=== PATIENT | male | born 1985 | race Caucasian/White ===

== ENCOUNTER 2021-10-21 16:03 | Observation (INO) ==
--- NOTE | 2021-10-21 16:26 | Emergency Department Note ---
History of Present Illness General Chief complaint: Laceration/Cut (Non-Suture) Stated complaint: R HAND LACERATION Time Seen by Provider: 10/21/21 16:24 History of Present Illness Maximum Pain Intensity: 9 This is a [id number] 36-year-old male on Dupixent for dermatitis accompanied by his who presents with pain and swelling in his right index finger and hand secondary to a dog bite that occurred yesterday. He was playing tug-of-war with his own dog yesterday who is up-to-date on immunizations and the dog bit down on his finger trying to get a split leather mosser higher up on the rope they were playing with. He did not think much of it and they drove to [place] from the [place] area for a softball tournament. When he woke up this morning he noticed the above symptoms and visited a local urgent care. They referred him to the emergency department for further evaluation and management. His pain is worse anytime he tries to bend the finger. He denies any red streaks traveling up his arm. He denies any fevers, chills, body aches, nausea, vomiting. Patient does endorse a tingling sensation in the tip of his finger although this is improving compared to yesterday. They are due to drive back to the [place] area tomorrow. He has been told that his immune system is lowered because of the Dupixent. Past Med/Surg History Medical History Dermatitis Surgical History No pertinent past surgical history Social History Smoking Status: Never smoker Second Hand Exposure: No; Do You Dip or Chew Tobacco: No; Tobacco Cessation Education Requested by Patient: No Hx Alcohol Use: Yes Alcohol type: beer Hx Substance Use: No Preferred Language: Sami Communication Ability: Effective Table Inspector Required: No Beliefs That Will Affect Care: None Current Living Situation: Spouse Other Information That Helps Us Care for You: No Feels Safe at Home: Yes Safety Concerns: Feels Safe At This Time Assistive Devices: None Review of Systems See HPI for pertinent positives & negatives. and A total of 10 systems reviewed and were otherwise negative Physical Exam Vital Signs Vital Signs - 24 hr 10/21/21 16:18 Temperature 98.2 F Temperature Source Temporal Artery Scan Pulse Rate 87 Respiratory Rate 20 Respiratory Effort / Characteristics Non-Labored Respiratory Depth Normal Blood Pressure 151/68 H Blood Pressure Mean 95 Pulse Oximetry 98 Oxygen Delivery Method Room Air Sepsis Recent Fever Within 48 Hours No Sepsis New/Unexplained Change in Mental Status No Sepsis Action Taken by Nursing No Action Required CONSTITUTIONAL: Well developed, well nourished, in no acute distress. HEAD: Normocephalic, atraumatic. NECK: Full active range of motion. No rigidity. RESPIRATORY: Breathing unlabored and symmetric. Lungs clear to auscultation bilaterally. No wheeze, rales, or rhonchi. CARDIOVASCULAR: Regular rate and rhythm. No murmurs, rubs, or gallops. 2+ pulse s intact bilaterally. MUSCULOSKELETAL: Right index finger: Healing but open 1.5 cm horizontal irregular laceration present on the volar aspect of the proximal phalanx. There is subcutaneous tissue visualized. There is localized tenderness and erythema in this area of the laceration. Erythema extends onto the palm proximal to the MCP joint. There is tenderness elicited with passive extension of the index finger that radiates into the palm, and mild tenderness about the laceration. No discharge. Patient with minimal active range of motion in this finger. No lymphatic streaking. SKIN: [place], warm, dry. Capillary refill less than 2 seconds in bilateral index fingers. NEUROLOGIC: Alert and oriented x 3. Minimal decreased sensation to light touch in distal phalanx of right index finger. PSYCHIATRIC: Appropriate. Normal affect. Course Consultations Consultation #1: Spoke with Dr. Aguilar (hospitalist, [facility]) who agrees to admit the patient under medicine, and will consult with orthopedics. He is requesting I also speak with orthopedics for their input. Consultation #2: Spoke with Dr. Vale (orthopedics) who states they will monitor and follow his response to antibiotics, will not take the patient to the OR this evening. Regarding the open wound on the hand, he states this will be left open to heal by secondary intention due to infection and age of wound. Administered Medications Doxycycline Hyclate (Doxycycline Hyclate 100 Mg Cap) 100 mg PO BID [facility]; Protocol Stop: 10/28/21 20:59 Last Admin: 10/22/21 07:46 Dose: 100 mg Documented by: [id number] Admin: 10/21/21 21:39 Dose: 100 mg Documented by: [id number] Heparin Sodium (Porcine) (Heparin Sod 5,000 Unit/0.5 Ml Vial) 5,000 units SQ Q12 LYUDMILA Stop: 11/20/21 20:59 Last Admin: 10/22/21 07:47 Dose: 5,000 units Documented by: [id number] Admin: 10/21/21 21:39 Dose: 5,000 units Documented by: [id number] Ampicillin Sodium/Sulbactam Sodium 3,000 mg/ Sodium Chloride 108 mls @ 200 mls/hr IV Q6H LYUDMILA; Protocol Stop: 10/29/21 00:00 Last Infusion: 10/22/21 07:08 Dose: 0 mls/hr Documented by: [id number] Admin: 10/22/21 06:30 Dose: 200 mls/hr Documented by: [id number] Infusion: 10/22/21 01:20 Dose: 0 mls/hr Documented by: [id number] Admin: 10/22/21 00:44 Dose: 200 mls/hr Documented by: [id number] Oxycodone/Acetaminophen (Oxycodone/Acetaminophen 5mg/325mg Tab) 1 tab PO Q4H PRN PRN Reason: Severe Pain Stop: 11/04/21 18:23 Last Admin: 10/22/21 03:18 Dose: 1 tab Documented by: [id number] Admin: 10/21/21 21:52 Dose: 1 tab Documented by: [id number] Discontinued Medications Diphtheria/Pertussis/Tetanus Vacc (Diphtheria/Tetanus/Pertussis 0.5 Ml Syr/Vial) 0.5 ml IM .ONCE ONE Stop: 10/21/21 19:12 Last Admin: 10/21/21 19:33 Dose: 0.5 ml Documented by: [id number] Ampicillin Sodium/Sulbactam Sodium 3,000 mg/ Sodium Chloride 108 mls @ 200 mls/hr IV NOW STA; Protocol Stop: 10/21/21 17:15 Last Infusion: 10/21/21 17:45 Dose: 0 mls/hr Documented by: [id number] Admin: 10/21/21 17:16 Dose: 200 mls/hr Documented by: [id number] Morphine Sulfate (Morphine Sulfate 4 Mg/Ml 1 Ml Carp\Vial) 4 mg IV NOW STA Stop: 10/21/21 18:20 Last Admin: 10/21/21 18:32 Dose: 4 mg Documented by: [id number] Medical Decision Making Differential Diagnosis Fracture, laceration, cellulitis, flexor tenosynovitis, tendon injury, nerve, vascular injury, subluxation, dislocation, foreign body, among other pathology. Medical Records Attestation: I reviewed the patient's medical records. Laboratory Data Result diagrams: 10/22/21 05:45 10/22/21 05:45 Lab Results 10/21/21 10/21/21 10/21/21 Range/Units 16:46 16:46 16:46 WBC 8.16 (4.8-10.8) K/ul RBC 4.00 L (4.63-6.08) M/uL Hgb 11.7 L (14.0-18.0) g/dl Hct 34.0 L (40.1-51.0) % MCV 85.0 (80.0-100.0) fL MCH 29.3 (25.0-34.0) pg MCHC 34.4 (32.0-36.0) g/dL RDW Std Deviation 39.8 (36.4-46.3) fL RDW Coeff of Karan 13.0 (11.5-14.5) % Plt Count 158 (130-400) K/uL MPV 9.2 L (9.4-12.4) fL Immature Gran % (Auto) 0.4 % Neut % (Auto) 69.4 % Lymph % (Auto) 22.2 % [place] % (Auto) 7.0 % Eos % (Auto) 0.9 % Baso % (Auto) 0.1 % Neut # (Auto) 5.67 (1.4-6.5) K/uL Lymph # (Auto) 1.81 (1.2-3.4) K/uL [place] # (Auto) 0.57 (0.24-0.82) K/uL Eos # (Auto) 0.07 (0-0.50) K/uL Baso # (Auto) 0.01 (0-0.2) K/uL Immature Gran # (Auto) 0.03 H (0.00-0.02) K/uL ESR 17 H (0-15) mm/hr Sodium 139 (136-145) mmol/L Potassium 3.5 (3.5-5.1) mmol/L Chloride 105 (98-107) mmol/L Carbon Dioxide 27 (21-32) mmol/L Anion Gap 7 (3-11) BUN 14 (6-23) mg/dl Creatinine 1.06 (0.6-1.4) mg/dl Est Cr Clr Drug Dosing 126.8 ml/min Est GFR ( Amer) 105.6 ml/min Est GFR (Non-Af Amer) 91.1 ml/min BUN/Creatinine Ratio 13.2 (10-20) Glucose 98 (70-99(Fasting)) mg/dl Calcium 9.0 (8.5-10.1) mg/dl C-Reactive Protein 4.80 H (0-0.5) mg/dl SARS-CoV-2, RNA, NAAT (NEGATIVE) 10/21/21 Range/Units 17:20 WBC (4.8-10.8) K/ul RBC (4.63-6.08) M/uL Hgb (14.0-18.0) g/dl Hct (40.1-51.0) % MCV (80.0-100.0) fL MCH (25.0-34.0) pg MCHC (32.0-36.0) g/dL RDW Std Deviation (36.4-46.3) fL RDW Coeff of Karan (11.5-14.5) % Plt Count (130-400) K/uL MPV (9.4-12.4) fL Immature Gran % (Auto) % Neut % (Auto) % Lymph % (Auto) % [place] % (Auto) % Eos % (Auto) % Baso % (Auto) % Neut # (Auto) (1.4-6.5) K/uL Lymph # (Auto) (1.2-3.4) K/uL [place] # (Auto) (0.24-0.82) K/uL Eos # (Auto) (0-0.50) K/uL Baso # (Auto) (0-0.2) K/uL Immature Gran # (Auto) (0.00-0.02) K/uL ESR (0-15) mm/hr Sodium (136-145) mmol/L Potassium (3.5-5.1) mmol/L Chloride (98-107) mmol/L Carbon Dioxide (21-32) mmol/L Anion Gap (3-11) BUN (6-23) mg/dl Creatinine (0.6-1.4) mg/dl Est Cr Clr Drug Dosing ml/min Est GFR ( Amer) ml/min Est GFR (Non-Af Amer) ml/min BUN/Creatinine Ratio (10-20) Glucose (70-99(Fasting)) mg/dl Calcium (8.5-10.1) mg/dl C-Reactive Protein (0-0.5) mg/dl SARS-CoV-2, RNA, NAAT NEGATIVE (NEGATIVE) Imaging Data Attestation: I personally reviewed and interpreted this imaging study as follows: My Impression: I agree with the radiologist's interpretation Radiologist's Impression: Hand X-Ray 10/21/21 16:50 XR hand RT min 3V routine CLINICAL HISTORY: dog bite 2nd prox. phalanx, infected. COMPARISON STUDY: No previous studies for comparison. TECHNIQUE: 3 right hand views FINDINGS: Bones: There is no evidence for an acute fracture or dislocation. There is no lytic or blastic lesion. Joints: The joint spaces are maintained. The bones are in anatomic alignment. Soft tissues: There is diffuse swelling of the index finger. There is no air seen within the soft tissues. There is no radiopaque foreign body. IMPRESSION: 1. No acute osseous pathology. 2. Soft tissue swelling of the index finger. ACT 112: Negative or not required by law. Electronically signed by: Ruslan Ocasio M.D. 10/21/2021 5:06 PM MDM Narrative This is a 36-year-old male on Dupixent who presents with a history and examination consistent with a secondary infection from a dog bite that occurred about 24 hours ago. He has a swollen and tender healing but persistent laceration present on the volar aspect of the proximal phalanx of the left index finger. This wound is relatively deep into the subcutaneous tissue. If this had been evaluated yesterday, this would have been a candidate for loose closure giv en the depth of the wound, however now it is too late and I am concerned about progressing the infection even further should we attempt primary closure. Patient does have a fair amount of tenderness elicited when passively extending the finger which does cause me some concern between cellulitis versus flexor tenosynovitis. Case was discussed with and patient seen by Dr. Ibarra who agrees given the constellation of him being immunocompromised, depth and age of wound, and exam findings being consistent with possible early flexor tenosynovitis, admission was recommended. Tdap updated by hospitalist after speaking with them Patient was given morphine for pain control. CRP, ESR mildly elevated No leukocytosis. Normal renal function. Mild anemia with a hemoglobin of 11.7. X-ray is negative for fracture, gas, or foreign body. Patient received a dose of Unasyn in the emergency department. He remained hemodynamically stable. I spoke with Dr. Vale (orthopedics) who states they would follow the wound, but patient will not be taken to the OR tonight for washout in hopes of clinical improvement with antibiotics. Spoke with Dr. Aguilar (hospitalist) who agrees to admit the patient for further management. Impression & Plan Infected dog bite of right index finger, Cellulitis of hand, right Discharge Plan Visit Data Chief Complaint: Laceration/Cut (Non-Suture) Stated Complaint: R HAND LACERATION ED Provider: Milad Ibarra ED Midlevel Provider: Jakob Stanton Discharge Problem: Infected dog bite of right index finger, Cellulitis of hand, right Patient Disposition: Admitted As Inpatient Condition: Good Discharge Instructions Interventions: ED Discharge Assessment Last Done: 10/21/21 20:00 Discharge Problem: Infected dog bite of right index finger Qualifiers: Encounter type: initial encounter Qualified Code(s): S61.250A - Open bite of right index finger without damage to nail, initial encounter
[2021-10-21] MEDS ORDERED: AMPICILLIN/SULBACTAM SOD 3,000 MG in 0.9 % SODIUM CHLORIDE 100 ML IV STA (16:43)
[2021-10-21 17:01] LABS: Basophils # (auto) 0.01 K/uL (0-0.2); Basophils % (auto) 0.1 %; Eosinophils # (auto) 0.07 K/uL (0-0.50); Eosinophils % (auto) 0.9 %; Hemoglobin 11.7 g/dl (14.0-18.0); Immature Granulocytes # (auto) 0.03 K/uL (0.00-0.02); Immature Granulocytes % (auto) 0.4 %; Lymphocytes # (auto) 1.81 K/uL (1.2-3.4); Lymphocytes % (auto) 22.2 %; Mean Corpuscular Hemoglobin 29.3 pg (25.0-34.0); Mean Corpuscular Hgb Conc 34.4 g/dL (32.0-36.0); Mean Platelet Volume 9.2 fL (9.4-12.4); Monocytes # (auto) 0.57 K/uL (0.24-0.82); Neutrophils # (auto) 5.67 K/uL (1.4-6.5); Neutrophils % (auto) 69.4 %; Platelet Count 158 K/uL (130-400); RDW Standard Deviation 39.8 fL (36.4-46.3); White Blood Count 8.16 K/ul (4.8-10.8)
--- NOTE | 2021-10-21 17:07 | XRay Report ---
XR hand RT min 3V routine CLINICAL HISTORY: dog bite 2nd prox. phalanx, infected. COMPARISON STUDY: No previous studies for comparison. TECHNIQUE: 3 right hand views FINDINGS: Bones: There is no evidence for an acute fracture or dislocation. There is no lytic or blastic lesion . Joints: The joint spaces are maintained. The bones are in anatomic alignment. Soft tissues: There is diffuse swelling of the index finger. There is no air seen within the soft tis sues. There is no radiopaque foreign body. IMPRESSION: 1. No acute osseous pathology. 2. Soft tissue swelling of the index finger. ACT 112: Negative or not required by law. Electronically signed by: Ruslan Ocasio M.D. 10/21/2021 5:06 PM
[2021-10-21 17:21] LABS: BUN Creatinine Ratio 13.2 (10-20); C Reactive Protein 4.8 mg/dl (0-0.5); Creatinine Clr Calc Pharmacy 126.8 ml/min; Est GFR (African American) 105.6 ml/min; Est GFR (Non-African American) 91.1 ml/min; Potassium 3.5 mmol/L (3.5-5.1)
[2021-10-21] MEDS ORDERED: MoRPHine SULFATE 4 MG/ML 1 ML CARP\\VIAL IV STA (18:19)
[2021-10-21] MEDS ORDERED: ALUMINUM/MAGNESIUM SUSP 30 ML UDC PO PRN (18:25)
--- NOTE | 2021-10-21 18:39 | History & Physical Report ---
Date of Service October 21, 2021 Assessment & Plan (1) Infected dog bite of right index finger: (2) Cellulitis of hand, right: Plan: #. Infected right index finger laceration #. Purulent cellulitis #. Dog bite #. Immunocompromised patient: Patient on Dupixent for atopic dermatitis Patient incurred dog bite 10/20, came in with complaint of progressive pain/redness/swelling. Patient denies any fever or chills. Pain control, patient received Unasyn in the ED, continue with the same MRSA screen sent, doxycycline until MRSA screen negative. Tetanus vaccine. Ortho aware per ED, will eval tomorrow, n.p.o. midnight until seen by Ortho in the morning. Wound care nurse. #. No other home meds #. DVT prophylaxis: Heparin #. Full code History of Present Illness Chief Complaint: dog bite Primary Care Provider: NO PCP 36-year-old gentleman with PMH of atopic dermatitis on Dupixent and no other significant PMH presented to our ED with worsening pain and swelling of his right hand after he incurred dog bite on his right index finger yesterday. Per patient, yesterday when he was playing with the dog he got bit, it was not bothering him much yesterday, but the pain/redness and swelling progressively worsened and hence he presented to the ED. Per patient, his dog is fully vaccinated. Patient denies fever/chills/headache/chest pain/palpitation/sore throat/cough/belly pain/acute changes in bowel or bladder habit. Pt remembers getting tetanus vaccine only as a kid. Patient states he quit smoking 4 years ago [he smoked 1 packs a day for around 10 years], states drinking alcohol 1-2 times a month, denies use of any recreational drugs or marijuana. Full code Patient on Dupixent, no other home medication. Past Med/Surg History Medical History (Updated 10/21/21 @ 18:38 by LEXI Bhatt) Dermatitis Surgical History (Updated 10/21/21 @ 18:38 by LEXI Bhatt) No pertinent past surgical history Social History Smoking Status: Never smoker Feels Safe at Home: Yes Review of Systems Review of Systems: Negative otherwise mentioned in HPI. Physical Exam Physical Exam: GENERAL: Alert and oriented x3. NAD, on RA. HEENT: No pallor, no icterus. Pupils equal, round and reactive to light. Oral mucosa moist. NECK: No JVD, no neck masses. HEART: S1 and S2 heard. Regular rate and rhythm. No murmur, no gallop. RESPIRATORY SYSTEM: Normal AP diameter. No accessory muscle use. No wheezing, no crackles. ABDOMEN: Soft, bowel sounds present, nontender, no distention. CENTRAL NERVOUS SYSTEM: No facial droop. Speech is clear. Obeys simple commands. Moves extremities. EXTREMITIES: No edema, no erythema seen. b/l forearm w/ atopic dermatitis rash. Rt index finger w/ approx 2.5 cm laceration w/ pus point, tender, swollen, erythema at base of index finger noted. Results & Data Results & Data ([facility]) Vital Signs (Past 12 Hours) Vital Signs Temp Pulse Resp BP Pulse Ox 10/21/21 16:18 36.8 C 87 20 151/68 H 98 Code Status & VTE Plan VTE Prophylaxis Plan VTE Prophylaxis will be ordered: Yes (1) Infected dog bite of right index finger Encounter type: initial encounter Qualified Code(s): S61.250A - Open bite of right index finger without damage to nail, initial encounter; L08.9 - Local infection of the skin and subcutaneous tissue, unspecified; W54.0XXA - Bitten by dog, initial encounter
[2021-10-21] MEDS ORDERED: DIPHTHERIA/TETANUS/PERTUSSIS 0.5 ML SYR/VIAL IM ONE (19:11)
[2021-10-21] MEDS: DOXYCYCLINE HYCLATE 100 MG CAP PO SCH (21:39)
[2021-10-21] MEDS: HEPARIN SOD 5,000 UNIT/0.5 ML VIAL SQ SCH (21:39)
[2021-10-21] MEDS: oxyCODONE/ACETAMINOPHEN 5mg/325mg TAB PO PRN (21:52)
--- NOTE | 2021-10-21 22:47 | Orthopedic Consultation ---
Date of Consultation October 21, 2021 Assessment & Plan (1) Infected dog bite of right index finger: Right index finger pain and swelling secondarily to dog bite. There is also a laceration. This occurred October 20, 2021. Pain and swelling likely due to to the crush injury and laceration. Unlikely flexor tenosynovitis. Recommend continued: 1) antibiotics. 2) warm soaks twice daily until the wound is scarred over 3) covering the wound with Xeroform and dry sterile dressing after completing soaks. Continue n.p.o., will reexamine if requires any surgery. Continue care per primary service Present on Admission?: Yes History of Present Illness Reason for Consultation: Right Index finger laceration, infection, dog bite Requesting Physician: Tiny Vale MD Attending Physician: Asaf Aguilar MD History of Present Illness Adalberto is a pleasant 36-year-old male, [id number], with past medical history of atopic dermatitis on Dupixent, who was bit by a dog in the right index finger October 20, 2021. He had increased pain and swelling and came to the emergency department the next day. He was evaluated and admitted to the medical service and started on IV was consulted for possible surgical intervention. He is from [place]. Patient History Medical History Dermatitis Surgical History No pertinent past surgical history Social History Smoking Status: Never smoker Second Hand Exposure: No; Do You Dip or Chew Tobacco: No; Tobacco Cessation Education Requested by Patient: No Hx Alcohol Use: Yes Alcohol type: beer Hx Substance Use: No Preferred Language: Stateless Communication Ability: Effective Digital Community Manager Required: No Beliefs That Will Affect Care: None Current Living Situation: Spouse Other Information That Helps Us Care for You: No Feels Safe at Home: Yes Safety Concerns: Feels Safe At This Time Assistive Devices: None Review of Systems Review of Systems: All systems reviewed & are unremarkable except as noted in HPI & below Physical Exam Physical Exam: Right Index Finger: BCR <2 seconds. Sensation light touch is intact distally. FDS, FDP and terminal extension are intact. The finger is held in slight flexion. Swelling is limited to the proximal phalanx. No erythema. No tenderness proximally or distally to the proximal phalanx along the flexor tendon. There is approximately 2 cm wound on the radial aspect of the index finger overlying the proximal phalanx. No overt evidence of infection. Results & Data ([facility]) Vital Signs (Past 12 Hours) Vital Signs Temp Pulse Pulse Resp BP BP BP 10/21/21 20:00 36.7 C 67 68 18 156/94 H 133/90 10/21/21 18:31 69 19 174/88 H 10/21/21 16:18 36.8 C 87 20 151/68 H Pulse Ox 10/21/21 20:00 97 10/21/21 18:31 97 10/21/21 16:18 98 Laboratory Results Laboratory Results WBC 8.16 K/ul (4.8-10.8) 10/21/21 16:46 RBC 4.00 M/uL (4.63-6.08) L 10/21/21 16:46 Hgb 11.7 g/dl (14.0-18.0) L 10/21/21 16:46 Hct 34.0 % (40.1-51.0) L 10/21/21 16:46 MCV 85.0 fL (80.0-100.0) 10/21/21 16:46 MCH 29.3 pg (25.0-34.0) 10/21/21 16:46 MCHC 34.4 g/dL (32.0-36.0) 10/21/21 16:46 RDW Std Deviation 39.8 fL (36.4-46.3) 10/21/21 16:46 RDW Coeff of Karan 13.0 % (11.5-14.5) 10/21/21 16:46 Plt Count 158 K/uL (130-400) 10/21/21 16:46 MPV 9.2 fL (9.4-12.4) L 10/21/21 16:46 Immature Gran % (Auto) 0.4 % 10/21/21 16:46 Neut % (Auto) 69.4 % 10/21/21 16:46 Lymph % (Auto) 22.2 % 10/21/21 16:46 [place] % (Auto) 7.0 % 10/21/21 16:46 Eos % (Auto) 0.9 % 10/21/21 16:46 Baso % (Auto) 0.1 % 10/21/21 16:46 Neut # (Auto) 5.67 K/uL (1.4-6.5) 10/21/21 16:46 Lymph # (Auto) 1.81 K/uL (1.2-3.4) 10/21/21 16:46 [place] # (Auto) 0.57 K/uL (0.24-0.82) 10/21/21 16:46 Eos # (Auto) 0.07 K/uL (0-0.50) 10/21/21 16:46 Baso # (Auto) 0.01 K/uL (0-0.2) 10/21/21 16:46 Immature Gran # (Auto) 0.03 K/uL (0.00-0.02) H 10/21/21 16:46 ESR 17 mm/hr (0-15) H 10/21/21 16:46 Sodium 139 mmol/L (136-145) 10/21/21 16:46 Potassium 3.5 mmol/L (3.5-5.1) 10/21/21 16:46 Chloride 105 mmol/L (98-107) 10/21/21 16:46 Carbon Dioxide 27 mmol/L (21-32) 10/21/21 16:46 Anion Gap 7 (3-11) 10/21/21 16:46 BUN 14 mg/dl (6-23) 10/21/21 16:46 Creatinine 1.06 mg/dl (0.6-1.4) 10/21/21 16:46 Est Cr Clr Drug Dosing 126.8 ml/min 10/21/21 16:46 Est GFR ( Amer) 105.6 ml/min 10/21/21 16:46 Est GFR (Non-Af Amer) 91.1 ml/min 10/21/21 16:46 BUN/Creatinine Ratio 13.2 (10-20) 10/21/21 16:46 Glucose 98 mg/dl (70-99(Fasting)) 10/21/21 16:46 Calcium 9.0 mg/dl (8.5-10.1) 10/21/21 16:46 C-Reactive Protein 4.80 mg/dl (0-0.5) H 10/21/21 16:46 Nasal Screen MRSA (PCR) Negative (Negative) 10/21/21 18:30 SARS-CoV-2, RNA, NAAT NEGATIVE (NEGATIVE) 10/21/21 17:20 Impressions Hand X-Ray 10/21/21 16:50 XR hand RT min 3V routine CLINICAL HISTORY: dog bite 2nd prox. phalanx, infected. COMPARISON STUDY: No previous studies for comparison. TECHNIQUE: 3 right hand views FINDINGS: Bones: There is no evidence for an acute fracture or dislocation. There is no lytic or blastic lesion. Joints: The joint spaces are maintained. The bones are in anatomic alignment. Soft tissues: There is diffuse swelling of the index finger. There is no air seen within the soft tissues. There is no radiopaque foreign body. IMPRESSION: 1. No acute osseous pathology. 2. Soft tissue swelling of the index finger. ACT 112: Negative or not required by law. Electronically signed by: Ruslan Ocasio M.D. 10/21/2021 5:06 PM (1) Infected dog bite of right index finger Encounter type: initial encounter Qualified Code(s): S61.250A - Open bite of right index finger without damage to nail, initial encounter; L08.9 - Local infection of the skin and subcutaneous tissue, unspecified; W54.0XXA - Bitten by dog, initial encounter
[2021-10-22] MEDS: AMPICILLIN/SULBACTAM SOD 3,000 MG in 0.9 % SODIUM CHLORIDE 100 ML IV SCH ×3 (00:44→11:43)
[2021-10-22] MEDS: oxyCODONE/ACETAMINOPHEN 5mg/325mg TAB PO PRN ×2 (03:18→11:40)
[2021-10-22 06:21] LABS: Hematocrit (blood only) 34.1 % (40.1-51.0); Hemoglobin 11.6 g/dl (14.0-18.0); Mean Corpuscular Hemoglobin 29.5 pg (25.0-34.0); Mean Corpuscular Volume 86.8 fL (80.0-100.0); Mean Platelet Volume 9.2 fL (9.4-12.4); Platelet Count 160 K/uL (130-400); RDW Coefficient of Variation 13.2 % (11.5-14.5); RDW Standard Deviation 41.5 fL (36.4-46.3); Red Blood Count 3.93 M/uL (4.63-6.08); White Blood Count 6.67 K/ul (4.8-10.8)
[2021-10-22 06:38] LABS: BUN Creatinine Ratio 12.5 (10-20); Creatinine Clr Calc Pharmacy 128.9 ml/min; Est GFR (African American) 108.1 ml/min; Est GFR (Non-African American) 93.2 ml/min; Magnesium 2.2 mg/dl (1.7-2.4); Phosphorus 4.1 mg/dl (2.5-4.9)
[2021-10-22] MEDS: DOXYCYCLINE HYCLATE 100 MG CAP PO SCH (07:46)
[2021-10-22] MEDS: HEPARIN SOD 5,000 UNIT/0.5 ML VIAL SQ SCH (07:47)
--- NOTE | 2021-10-22 07:53 | Hospitalist Progress Note ---
Date of Service October 22, 2021 Assessment & Plan (1) Infected dog bite of right index finger: (2) Cellulitis of hand, right: Plan: #. Infected right index finger laceration #. Purulent cellulitis #. Dog bite #. Immunocompromised patient: Patient on Dupixent for atopic dermatitis Patient incurred dog bite 10/20, came in with complaint of progressive pain/redness/swelling. Patient denies any fever or chills. Pain control, patient received Unasyn in the ED, continue with the same Tetanus vaccine. Ortho consulted and evaluated the patient. No surgical intervention needed. Plan to discharge on p.o. antibiotics. Care recommendations provided in discharge summary. Patient should follow-up with orthopedic surgeon in his area this week. #. No other home meds DVT prophylaxis: Heparin Full code Admission and Anticipated Discharge Date Admission Date: October 21, 2021 Subjective Patient seen in follow-up of dog bite to his hand, cellulitis Reports erythema resolved overnight with IV antibiotics Seen by orthopedic surgeon, no need for surgery, okay to discharge on p.o. antibiotics Patient denies fevers, chills, chest pain, shortness of breath Is able to move his right index finger, but reports some throbbing, no numbness Review of Systems Review of Systems: All systems reviewed & are unremarkable except as noted in Subjective Physical Exam Physical Exam: GENERAL: Obese young male, alert and oriented x3. NAD, on RA. HEENT: No pallor, no icterus. Pupils equal, round and reactive to light. Oral mucosa moist. NECK: No JVD, supple HEART: S1 and S2 heard. Regular rate and rhythm. No murmur, no gallop. RESPIRATORY SYSTEM: Normal AP diameter. No accessory muscle use. No wheezing, no crackles. ABDOMEN: Soft, bowel sounds present, nontender, no distention. NEURO: No facial droop. Speech is clear. Obeys simple commands. Moves extremities. EXTREMITIES: No edema, no erythema seen. b/l forearm w/ atopic dermatitis rash. Rt index finger w/ approx 2 cm laceration, dressings applied Results & Data Results & Data ([facility]) Vital Signs (Past 12 Hours) Vital Signs Temp Pulse Pulse Resp BP BP Pulse Ox 10/22/21 07:13 36.9 C 75 16 139/86 95 10/21/21 20:00 36.7 C 67 68 18 156/94 H 133/90 97 Pulse Ox 10/22/21 07:13 10/21/21 20:00 97 Laboratory Results 10/22/21 10/22/21 10/21/21 Range/Units 05:45 05:45 18:30 WBC 6.67 (4.8-10.8) K/ul RBC 3.93 L (4.63-6.08) M/uL Hgb 11.6 L (14.0-18.0) g/dl Hct 34.1 L (40.1-51.0) % MCV 86.8 (80.0-100.0) fL MCH 29.5 (25.0-34.0) pg MCHC 34.0 (32.0-36.0) g/dL RDW Std Deviation 41.5 (36.4-46.3) fL RDW Coeff of Karan 13.2 (11.5-14.5) % Plt Count 160 (130-400) K/uL MPV 9.2 L (9.4-12.4) fL Immature Gran % (Auto) % Neut % (Auto) % Lymph % (Auto) % [place] % (Auto) % Eos % (Auto) % Baso % (Auto) % Neut # (Auto) (1.4-6.5) K/uL Lymph # (Auto) (1.2-3.4) K/uL [place] # (Auto) (0.24-0.82) K/uL Eos # (Auto) (0-0.50) K/uL Baso # (Auto) (0-0.2) K/uL Immature Gran # (Auto) (0.00-0.02) K/uL ESR (0-15) mm/hr Sodium 137 (136-145) mmol/L Potassium 4.0 (3.5-5.1) mmol/L Chloride 104 (98-107) mmol/L Carbon Dioxide 29 (21-32) mmol/L Anion Gap 4 (3-11) BUN 13 (6-23) mg/dl Creatinine 1.04 (0.6-1.4) mg/dl Est Cr Clr Drug Dosing 128.9 ml/min Est GFR ( Amer) 108.1 ml/min Est GFR (Non-Af Amer) 93.2 ml/min BUN/Creatinine Ratio 12.5 (10-20) Glucose 96 (70-99(Fasting)) mg/dl Calcium 9.0 (8.5-10.1) mg/dl Phosphorus 4.1 (2.5-4.9) mg/dl Magnesium 2.2 (1.7-2.4) mg/dl C-Reactive Protein (0-0.5) mg/dl Nasal Screen MRSA (PCR) Negative (Negative) SARS-CoV-2, RNA, NAAT (NEGATIVE) 10/21/21 10/21/21 10/21/21 Range/Units 17:20 16:46 16:46 WBC (4.8-10.8) K/ul RBC (4.63-6.08) M/uL Hgb (14.0-18.0) g/dl Hct (40.1-51.0) % MCV (80.0-100.0) fL MCH (25.0-34.0) pg MCHC (32.0-36.0) g/dL RDW Std Deviation (36.4-46.3) fL RDW Coeff of Karan (11.5-14.5) % Plt Count (130-400) K/uL MPV (9.4-12.4) fL Immature Gran % (Auto) % Neut % (Auto) % Lymph % (Auto) % [place] % (Auto) % Eos % (Auto) % Baso % (Auto) % Neut # (Auto) (1.4-6.5) K/uL Lymph # (Auto) (1.2-3.4) K/uL [place] # (Auto) (0.24-0.82) K/uL Eos # (Auto) (0-0.50) K/uL Baso # (Auto) (0-0.2) K/uL Immature Gran # (Auto) (0.00-0.02) K/uL ESR 17 H (0-15) mm/hr Sodium 139 (136-145) mmol/L Potassium 3.5 (3.5-5.1) mmol/L Chloride 105 (98-107) mmol/L Carbon Dioxide 27 (21-32) mmol/L Anion Gap 7 (3-11) BUN 14 (6-23) mg/dl Creatinine 1.06 (0.6-1.4) mg/dl Est Cr Clr Drug Dosing 126.8 ml/min Est GFR ( Amer) 105.6 ml/min Est GFR (Non-Af Amer) 91.1 ml/min BUN/Creatinine Ratio 13.2 (10-20) Glucose 98 (70-99(Fasting)) mg/dl Calcium 9.0 (8.5-10.1) mg/dl Phosphorus (2.5-4.9) mg/dl Magnesium (1.7-2.4) mg/dl C-Reactive Protein 4.80 H (0-0.5) mg/dl Nasal Screen MRSA (PCR) (Negative) SARS-CoV-2, RNA, NAAT NEGATIVE (NEGATIVE) 10/21/21 Range/Units 16:46 WBC 8.16 (4.8-10.8) K/ul RBC 4.00 L (4.63-6.08) M/uL Hgb 11.7 L (14.0-18.0) g/dl Hct 34.0 L (40.1-51.0) % MCV 85.0 (80.0-100.0) fL MCH 29.3 (25.0-34.0) pg MCHC 34.4 (32.0-36.0) g/dL RDW Std Deviation 39.8 (36.4-46.3) fL RDW Coeff of Karan 13.0 (11.5-14.5) % Plt Count 158 (130-400) K/uL MPV 9.2 L (9.4-12.4) fL Immature Gran % (Auto) 0.4 % Neut % (Auto) 69.4 % Lymph % (Auto) 22.2 % [place] % (Auto) 7.0 % Eos % (Auto) 0.9 % Baso % (Auto) 0.1 % Neut # (Auto) 5.67 (1.4-6.5) K/uL Lymph # (Auto) 1.81 (1.2-3.4) K/uL [place] # (Auto) 0.57 (0.24-0.82) K/uL Eos # (Auto) 0.07 (0-0.50) K/uL Baso # (Auto) 0.01 (0-0.2) K/uL Immature Gran # (Auto) 0.03 H (0.00-0.02) K/uL ESR (0-15) mm/hr Sodium (136-145) mmol/L Potassium (3.5-5.1) mmol/L Chloride (98-107) mmol/L Carbon Dioxide (21-32) mmol/L Anion Gap (3-11) BUN (6-23) mg/dl Creatinine (0.6-1.4) mg/dl Est Cr Clr Drug Dosing ml/min Est GFR ( Amer) ml/min Est GFR (Non-Af Amer) ml/min BUN/Creatinine Ratio (10-20) Glucose (70-99(Fasting)) mg/dl Calcium (8.5-10.1) mg/dl Phosphorus (2.5-4.9) mg/dl Magnesium (1.7-2.4) mg/dl C-Reactive Protein (0-0.5) mg/dl Nasal Screen MRSA (PCR) (Negative) SARS-CoV-2, RNA, NAAT (NEGATIVE) Medications Administered Current Inpatient Medications Al Hydrox/Mg Hydrox/Simethicone (Aluminum/Magnesium Susp 30 Ml Udc) 15 ml PO Q4H PRN PRN Reason: Dyspepsia Stop: 11/20/21 18:24 Doxycycline Hyclate (Doxycycline Hyclate 100 Mg Cap) 100 mg PO BID LYUDMILA; Protocol Stop: 10/28/21 20:59 Last Admin: 10/22/21 07:46 Dose: 100 mg Documented by: Heparin Sodium (Porcine) (Heparin Sod 5,000 Unit/0.5 Ml Vial) 5,000 units SQ Q12 LYUDMILA Stop: 11/20/21 20:59 Last Admin: 10/22/21 07:47 Dose: 5,000 units Documented by: Ampicillin Sodium/Sulbactam Sodium 3,000 mg/ Sodium Chloride 108 mls @ 200 mls/hr IV Q6H LYUDMILA; Protocol Stop: 10/29/21 00:00 Last Infusion: 10/22/21 07:08 Dose: Infused Documented by: Oxycodone/Acetaminophen (Oxycodone/Acetaminophen 5mg/325mg Tab) 1 tab PO Q4H PRN PRN Reason: Severe Pain Stop: 11/04/21 18:23 Last Admin: 10/22/21 03:18 Dose: 1 tab Documented by: (1) Infected dog bite of right index finger Encounter type: initial encounter Qualified Code(s): S61.250A - Open bite of right index finger without damage to nail, initial encounter; L08.9 - Local infection of the skin and subcutaneous tissue, unspecified; W54.0XXA - Bitten by dog, initial encounter
--- NOTE | 2021-10-22 08:48 | Orthopedic Progress Note ---
Date of Service October 22, 2021 Assessment & Plan (1) Infected dog bite of right index finger: Plan: Right index finger pain and swelling secondarily to dog bite. There is also a laceration. This occurred October 20, 2021. Pain and swelling likely due to to the crush injury and laceration. Unlikely flexor tenosynovitis. Recommend continued: 1) antibiotics. Would send home on Oral. 2) warm soaks twice daily until the wound is scarred over 3) covering the wound with Xeroform and dry sterile dressing after completing soaks. No need for surgery at this time. May eat. Recommend follow-up with Orthopedics back home in [place] this week. In the event that symptoms worsen will return to ED. Continue care per primary service Admission and Anticipated Discharge Date Admission Date: October 21, 2021 Subjective Right index finger softening, pain improving. Review of Systems Review of Systems: All systems reviewed & are unremarkable except as noted in HPI & below Physical Exam Physical Exam: Right Index Finger: BCR <2 seconds. Sensation light touch is intact distally. FDS, FDP and terminal extension are intact. The finger is held in slight flexion. No pain with passive extension of the digit. Swelling is limited to the proximal phalanx. No erythema. No tenderness proximally or distally to the proximal phalanx along the flexor tendon. Decreased tenderness over he proximal phalanx and MC head. There is approximately 2 cm wound on the radial aspect of the index finger overlying the proximal phalanx. No overt evidence of flexor tenosynovitis. / [place] sign Results & Data ([facility]) Vital Signs (Past 12 Hours) Vital Signs Temp Pulse Resp BP Pulse Ox 10/22/21 07:13 36.9 C 75 16 139/86 95 Laboratory Results Laboratory Results WBC 6.67 K/ul (4.8-10.8) 10/22/21 05:45 RBC 3.93 M/uL (4.63-6.08) L 10/22/21 05:45 Hgb 11.6 g/dl (14.0-18.0) L 10/22/21 05:45 Hct 34.1 % (40.1-51.0) L 10/22/21 05:45 MCV 86.8 fL (80.0-100.0) 10/22/21 05:45 MCH 29.5 pg (25.0-34.0) 10/22/21 05:45 MCHC 34.0 g/dL (32.0-36.0) 10/22/21 05:45 RDW Std Deviation 41.5 fL (36.4-46.3) 10/22/21 05:45 RDW Coeff of Karan 13.2 % (11.5-14.5) 10/22/21 05:45 Plt Count 160 K/uL (130-400) 10/22/21 05:45 MPV 9.2 fL (9.4-12.4) L 10/22/21 05:45 Immature Gran % (Auto) 0.4 % 10/21/21 16:46 Neut % (Auto) 69.4 % 10/21/21 16:46 Lymph % (Auto) 22.2 % 10/21/21 16:46 [place] % (Auto) 7.0 % 10/21/21 16:46 Eos % (Auto) 0.9 % 10/21/21 16:46 Baso % (Auto) 0.1 % 10/21/21 16:46 Neut # (Auto) 5.67 K/uL (1.4-6.5) 10/21/21 16:46 Lymph # (Auto) 1.81 K/uL (1.2-3.4) 10/21/21 16:46 [place] # (Auto) 0.57 K/uL (0.24-0.82) 10/21/21 16:46 Eos # (Auto) 0.07 K/uL (0-0.50) 10/21/21 16:46 Baso # (Auto) 0.01 K/uL (0-0.2) 10/21/21 16:46 Immature Gran # (Auto) 0.03 K/uL (0.00-0.02) H 10/21/21 16:46 ESR 17 mm/hr (0-15) H 10/21/21 16:46 Sodium 137 mmol/L (136-145) 10/22/21 05:45 Potassium 4.0 mmol/L (3.5-5.1) 10/22/21 05:45 Chloride 104 mmol/L (98-107) 10/22/21 05:45 Carbon Dioxide 29 mmol/L (21-32) 10/22/21 05:45 Anion Gap 4 (3-11) 10/22/21 05:45 BUN 13 mg/dl (6-23) 10/22/21 05:45 Creatinine 1.04 mg/dl (0.6-1.4) 10/22/21 05:45 Est Cr Clr Drug Dosing 128.9 ml/min 10/22/21 05:45 Est GFR ( Amer) 108.1 ml/min 10/22/21 05:45 Est GFR (Non-Af Amer) 93.2 ml/min 10/22/21 05:45 BUN/Creatinine Ratio 12.5 (10-20) 10/22/21 05:45 Glucose 96 mg/dl (70-99(Fasting)) 10/22/21 05:45 Calcium 9.0 mg/dl (8.5-10.1) 10/22/21 05:45 Phosphorus 4.1 mg/dl (2.5-4.9) 10/22/21 05:45 Magnesium 2.2 mg/dl (1.7-2.4) 10/22/21 05:45 C-Reactive Protein 4.80 mg/dl (0-0.5) H 10/21/21 16:46 Nasal Screen MRSA (PCR) Negative (Negative) 10/21/21 18:30 SARS-CoV-2, RNA, NAAT NEGATIVE (NEGATIVE) 10/21/21 17:20 Impressions Hand X-Ray 10/21/21 16:50 XR hand RT min 3V routine CLINICAL HISTORY: dog bite 2nd prox. phalanx, infected. COMPARISON STUDY: No previous studies for comparison. TECHNIQUE: 3 right hand views FINDINGS: Bones: There is no evidence for an acute fracture or dislocation. There is no lytic or blastic lesion. Joints: The joint spaces are maintained. The bones are in anatomic alignment. Soft tissues: There is diffuse swelling of the index finger. There is no air seen within the soft tissues. There is no radiopaque foreign body. IMPRESSION: 1. No acute osseous pathology. 2. Soft tissue swelling of the index finger. ACT 112: Negative or not required by law. Electronically signed by: Ruslan Ocasio M.D. 10/21/2021 5:06 PM (1) Infected dog bite of right index finger Encounter type: initial encounter Qualified Code(s): S61.250A - Open bite of right index finger without damage to nail, initial encounter; L08.9 - Local infection of the skin and subcutaneous tissue, unspecified; W54.0XXA - Bitten by dog, initial encounter
--- NOTE | 2021-10-22 11:06 | Discharge Summary ---
Date of Service October 22, 2021 Admission HPI Per Admitting Provider 36-year-old gentleman with PMH of atopic dermatitis on Dupixent and no other significant PMH presented to our ED with worsening pain and swelling of his right hand after he incurred dog bite on his right index finger yesterday. Per patient, yesterday when he was playing with the dog he got bit, it was not bothering him much yesterday, but the pain/redness and swelling progressively worsened and hence he presented to the ED. Per patient, his dog is fully vaccinated. Patient denies fever/chills/headache/chest pain/palpitation/sore throat/cough/belly pain/acute changes in bowel or bladder habit. Pt remembers getting tetanus vaccine only as a kid. Patient states he quit smoking 4 years ago [he smoked 1 packs a day for around 10 years], states drinking alcohol 1-2 times a month, denies use of any recreational drugs or marijuana. Full code Patient on Dupixent, no other home medication. Admission Exam Per Admitting Provider GENERAL: Alert and oriented x3. NAD, on RA. HEENT: No pallor, no icterus. Pupils equal, round and reactive to light. Oral mucosa moist. NECK: No JVD, no neck masses. HEART: S1 and S2 heard. Regular rate and rhythm. No murmur, no gallop. RESPIRATORY SYSTEM: Normal AP diameter. No accessory muscle use. No wheezing, no crackles. ABDOMEN: Soft, bowel sounds present, nontender, no distention. CENTRAL NERVOUS SYSTEM: No facial droop. Speech is clear. Obeys simple commands. Moves extremities. EXTREMITIES: No edema, no erythema seen. b/l forearm w/ atopic dermatitis rash. Rt index finger w/ approx 2.5 cm laceration w/ pus point, tender, swollen, erythema at base of index finger noted. Principal Diagnosis Infected dog bite, right index finger Discharge Exam GENERAL: Obese young male, alert and oriented x3. NAD, on RA. HEENT: No pallor, no icterus. Pupils equal, round and reactive to light. Oral mucosa moist. NECK: No JVD, supple HEART: S1 and S2 heard. Regular rate and rhythm. No murmur, no gallop. RESPIRATORY SYSTEM: Normal AP diameter. No accessory muscle use. No wheezing, no crackles. ABDOMEN: Soft, bowel sounds present, nontender, no distention. NEURO: No facial droop. Speech is clear. Obeys simple commands. Moves extremities. EXTREMITIES: No edema, no erythema seen. b/l forearm w/ atopic dermatitis rash. Rt index finger w/ approx 2 cm laceration, dressings applied Discharge Data Consultations 10/21/21 18:19 ED Decision to Admit Stat 10/21/21 18:28 Consult Orthopedic Surgery Routine Procedures Performed Operation Date: 10/22/21 14:00 <No data on this case meets the specified criteria> Hospital Course (1) Infected dog bite of right index finger: (2) Cellulitis of hand, right: #. Infected right index finger laceration #. Purulent cellulitis #. Dog bite #. Immunocompromised patient: Patient on Dupixent for atopic dermatitis Patient incurred dog bite 10/20, came in with complaint of progressive pain/redness/swelling. Patient denies any fever or chills. Pain control, patient received Unasyn in the ED, continue with the same Tetanus vaccine. Ortho consulted and evaluated the patient. No surgical intervention needed. Plan to discharge on p.o. antibiotics. Care recommendations provided in discharge summary. Patient should follow-up with orthopedic surgeon in his area this week. Total Time Total Time Spent Total Time Spent (In Minutes): 40 Discharge Plan Discharge Items Patient Disposition: Home - Self-Care Reason For Visit: DOG BITE Discharge Diagnosis: Infected dog bite, right index finger Condition on Discharge: Good Activity: Per Instructions section Non-emergency contact: Primary Care Provider and Specialist Call non-emergency contact if: you have any medication questions and your symptoms worsen Follow-up/Referrals: PCP,NO [Primary Care Provider] - Diet: Regular Addtl Attending Provider Instructions: Follow-up with orthopedic surgeon in your area this week. Take antibiotics, Augmentin as prescribed. Warm soaks twice daily until the wound is scarred over. Covering the wound with Xeroform and dry sterile dressing after completing soaks. In the event that symptoms worsen, return to Emergency Room. Recommend taking probiotics while you are on antibiotic to prevent any stomach upset or diarrhea. Pending Studies at Discharge: No Stand-Alone Forms: [employer], Smoking Cessation Medications and DC Order Prescriptions: New amoxicillin-pot clavulanate 875-125 mg tablet 1 tab PO BID 10 Days Qty: 20 RF: 0 Discharge Orders: Discharge Order (Routine); Ordered 10/22/21 Ordered By: Matt Shipman/Other Patient Handouts: Animal Bites and Scratches, ED Animal Bite (General), ED Dog Bite Admission Data Admit Date/Time: 10/21/21 18:26 Attending Provider: Matt Bernard Admit Provider: Asaf Aguilar Primary Care Provider: PCP,NO Other Providers: Niall Vale ; Asaf Aguilar Other Interventions: Discharge Summary Assessment (RN) Last Done: 10/22/21 09:51
== END 2021-10-22 13:26 | disposition home or self-care (01) ==
LOC: ED 16:03 → 3W 16:03 → SUATTDRO 18:26 → 3W 20:00